=== PATIENT | female | born 1975 | race Caucasian/White ===

== ENCOUNTER → 2021-03-13 17:17 | Outpatient (CLI) | payer BC, SELFPAY ==
--- NOTE | ~2021-03-13 | MR_ITS ---
EXAMINATION: MR cervical spine wo con EXAM DATE: 03/13/2021 18:18 INDICATION: Cervical radiculopathy. Neck pain that radiates down right arm since October. TECHNIQUE: Multi-sequential, multiplanar MR images of the cervical spine were obtained without contra st. Axial T2, axial T2 MERGE sequence. Sagittal T1, T2, T2 fat saturation images also obtained. Th ere is no prior study for comparison. FINDINGS: The vertebral bodies are aligned in the AP dimension. Mild to moderate loss of the disc he ight C3-C6. The spinal cord signal intensity and intrinsic morphology is normal. Cervicomedullary tu ction is normal in appearance. There are no suspicious marrow signal abnormalities. Paraspinal soft t issue is unremarkable. Level by level evaluation: C2-C3: Disc does not extend beyond the endplate margin. Uncovertebral joint arthropathy: None. Facet joint arthropathy: Mild bilateral. Neural foraminal stenosis: No stenosis. Central canal stenosis: No stenosis. C3-C4: Disc does not extend beyond the endplate margin. Uncovertebral joint arthropathy: Mild to moderate left, mild right. Facet joint arthropathy: Mild bilateral. Neural foraminal stenosis: Mild to moderate bilateral. Central canal stenosis: Congenital narrowing. C4-C5: There is a minimal diffuse disc bulge. Uncovertebral joint arthropathy: Moderate to severe left, moderate right. Facet joint arthropathy: Mild to moderate bilateral. Neural foraminal stenosis: Moderate to severe left, mild to moderate right. Central canal stenosis: Mild superimposed on congenital. C5-C6: There is a mild diffuse disc bulge. Uncovertebral joint arthropathy: Moderate to severe right, mild to moderate left. Facet joint arthropathy: Mild to moderate left, mild right. Neural foraminal stenosis: Moderate right, mild left. Central canal stenosis: Mild superimposed on congenital. C6-C7: There is a mild diffuse disc bulge. Uncovertebral joint arthropathy: Mild to moderate right, mild left. Facet joint arthropathy: Mild bilateral. Neural foraminal stenosis: Mild bilateral. Central canal stenosis: Mild superimposed on congenital. C7-T1: Disc does not extend beyond the endplate margin. Uncovertebral joint arthropathy: Mild to moderate left, mild right. Facet joint arthropathy: Mild bilateral. Neural foraminal stenosis: No stenosis. Central canal stenosis: No stenosis. IMPRESSION: Left C4-5 neural foramina most narrowed on exam, but otherwise overall moderate cervical spondylosis. Reviewed, dictated and finalized at location B. IMPRESSION: Left C4-5 neural foramina most narrowed on exam, but otherwise over all moderate cervical spondylosis.
== END ==
PROVIDERS: Visit Provider Nurse Practitioner Adult Health
DX: M47.813 Spondylosis without myelopathy or radiculopathy, cervicothoracic region (principal); M48.03 Spinal stenosis, cervicothoracic region
CPT/HCPCS: 72141